=== PATIENT | female | born 1940 | race Asian ===

== ENCOUNTER 2016-12-19 16:10 | Outpatient (CLI) | payer OTHER ==
[2016-12-19 16:46] LABS: PLATELET COUNT 258 K/uL (152-353)
[2016-12-19 17:03] LABS: POTASSIUM 4.5 mmol/L (3.6-5.2)
== END 2016-12-19 19:18 | disposition home or self-care (01) ==
LOC: LAB 16:10
PROVIDERS: Nurse Practitioner Family
DX: E03.8 Other specified hypothyroidism (principal); E78.00 Pure hypercholesterolemia, unspecified; I10 Essential (primary) hypertension; E11.9 Type 2 diabetes mellitus without complications
CPT/HCPCS: 80053; 80061; 83036; 84439; 84443; 85027

== ENCOUNTER 2018-03-07 13:21 | Outpatient (CLI) | payer OTHER | END 2018-03-07 20:32 | disposition home or self-care (01) | LOC: LABW 13:21 | DX: M31.5 Giant cell arteritis with polymyalgia rheumatica (principal); M81.0 Age-related osteoporosis without current pathological fracture | CPT/HCPCS: 36415; 85651; 86140 ==